=== PATIENT | male | born 1990 | race African-American/Black ===

== ENCOUNTER 2019-12-16 19:00 | Outpatient (CLI) | payer OTHER | END 2019-12-16 19:01 | disposition home or self-care (01) | LOC: SLEEPLAB 19:00 | PROVIDERS: ATTEND Internal Medicine Critical Care Medicine | DX: G47.33 Obstructive sleep apnea (adult) (pediatric) (principal); G47.10 Hypersomnia, unspecified | CPT/HCPCS: 95810 ==

== ENCOUNTER 2019-12-17 08:00 | Outpatient (CLI) | payer OTHER | END 2019-12-17 08:01 | disposition home or self-care (01) | LOC: SLEEPLAB 08:00 | PROVIDERS: ATTEND Internal Medicine Critical Care Medicine | DX: G47.33 Obstructive sleep apnea (adult) (pediatric) (principal); G47.11 Idiopathic hypersomnia with long sleep time | CPT/HCPCS: 95805 ==